=== PATIENT | male | born 1980 | race Two or more races ===

== ENCOUNTER → 2020-01-23 12:10 | Emergency (ER) | payer SELFPAY ==
[~2020-01-23] VITALS: Ht 167.6 cm; Wt 68.0 kg
[2020-01-23 12:53] VITALS: BP 110/82
== END | disposition home or self-care (01) ==
LOC: ER 12:10
DX: R50.9 Fever, unspecified (principal); R06.02 Shortness of breath; Z20.828 Contact with and (suspected) exposure to other viral communicable diseases
CPT/HCPCS: 36415; 71045; 87426